=== PATIENT | female | born 1955 | race Caucasian/White ===

== ENCOUNTER → 2018-01-28 | Outpatient (CLI) | payer OTHER ==
[~2018-01-28] MED LIST: AMOX500 PO; Albuterol17 G1 INH; CALCAVITD PO; CEFP200 PO; CHOL10002 PO; CYCL10 PO; ERGO400 PO; IBUP800 PO; LEVSOD100 PO; LEVSOD25 PO; LISHYD1012 PO; LISHYD2025 PO; Multivitamin1 EAC1 PO; PREN-16 PO; PROC10 PO; VALA500 PO
[2018-01-28 14:19] LABS: BASOPHILS ABSOLUTE AUTO 0.05 K/mm3 (0.00-0.23); BASOPHILS PERCENT AUTO 1 % (0-2); EOSINOPHILS ABSOLUTE AUTO 0.07 K/mm3 (0.00-0.68); EOSINOPHILS PERCENT AUTO 1 % (0-6); Hematocrit 41.5 % (33.0-51.0); Hemoglobin 14.2 g/dL (11.5-16.0); IMMATURE GRAN ABSOLUTE AUTO 0.02 K/mm3 (0.00-0.10); IMMATURE GRAN PERCENT AUTO 0 % (0-1); LYMPHOCYTES PERCENT AUTO 28 % (21-46); MONOCYTES ABSOLUTE AUTO 0.43 K/mm3 (0.16-1.47); MONOCYTES PERCENT AUTO 5 % (4-13); Mean Corpuscular HGB 31.8 pg (26.0-34.0); Mean Corpuscular HGB Conc 34.2 g/dL (31.5-36.5); Mean Corpuscular Volume 93 fL (80-100); Mean Platelet Volume 10.4 fL (9.1-12.4); NEUTROPHILS ABSOLUTE AUTO 5.99 K/mm3 (1.96-9.15); NEUTROPHILS PERCENT AUTO 66 % (41-73); Platelet Count 283 K/mm3 (150-400); RDW Coefficient Variation 12.4 % (11.7-14.2); RDW Standard Deviation 42.5 fL (35.1-46.3); Red Blood Cell Count 4.46 M/mm3 (3.80-5.20); White Blood Cell Count 9.06 K/mm3 (4.00-11.30)
[2018-01-28 14:23] LABS: Bun/Creatinine Ratio 15.2 (12.0-20.0); Calcium, Blood 9.5 mg/dL (8.5-10.1); Creatinine, Blood 1.12 mg/dL (0.40-1.00); Potassium, Blood 3.8 mmol/L (3.5-5.5)
== END | disposition home or self-care (01) ==
LOC: LAB EV 14:13 → LAB SHORT 14:13
PROVIDERS: Family Medicine
DX: R10.9 Unspecified abdominal pain (principal)
CPT/HCPCS: 80048; 85025

== ENCOUNTER 2018-10-18 06:56 | Emergency (ER) | payer OTHER ==
[~2018-10-18] VITALS: Ht 162.6 cm; Wt 81.7 kg
[2018-10-18 08:03] LABS: BASOPHILS ABSOLUTE AUTO 0.05 K/mm3 (0.00-0.23); BASOPHILS PERCENT AUTO 0 % (0-2); EOSINOPHILS ABSOLUTE AUTO 0.02 K/mm3 (0.00-0.68); EOSINOPHILS PERCENT AUTO 0 % (0-6); Hematocrit 42.2 % (33.0-51.0); IMMATURE GRAN ABSOLUTE AUTO 0.03 K/mm3 (0.00-0.10); IMMATURE GRAN PERCENT AUTO 0 % (0-1); LYMPHOCYTES ABSOLUTE AUTO 2.33 K/mm3 (0.84-5.20); LYMPHOCYTES PERCENT AUTO 18 % (21-46); MONOCYTES ABSOLUTE AUTO 0.69 K/mm3 (0.16-1.47); MONOCYTES PERCENT AUTO 5 % (4-13); Mean Corpuscular HGB 31.3 pg (26.0-34.0); Mean Corpuscular HGB Conc 33.2 g/dL (31.5-36.5); Mean Corpuscular Volume 94 fL (80-100); Mean Platelet Volume 10.1 fL (9.1-12.4); NEUTROPHILS ABSOLUTE AUTO 9.76 K/mm3 (1.96-9.15); NEUTROPHILS PERCENT AUTO 76 % (41-73); Platelet Count 278 K/mm3 (150-400); RDW Coefficient Variation 13.2 % (11.7-14.2); RDW Standard Deviation 46.1 fL (35.1-46.3); Red Blood Cell Count 4.47 M/mm3 (3.80-5.20); White Blood Cell Count 12.88 K/mm3 (4.00-11.30)
[2018-10-18 08:26] LABS: Alanine Aminotransfer (ALT/SGP 35 U/L (12-78); Albumin, Blood 3.8 g/dL (3.4-5.0); Alk Phos 60 U/L (50-136); Anion Gap 6 mmol/L (6-16); Aspartate Aminotrans (AST/SGOT 40 U/L (12-37); Bilirubin, Total 0.5 mg/dL (0.1-1.0); Blood Urea Nitrogen 19 mg/dL (8-24); Bun/Creatinine Ratio 22.6 (12.0-20.0); CO2, Blood 25 mmol/L (21-32); Chloride, Blood 110 mmol/L (98-108); Creatinine, Blood 0.84 mg/dL (0.40-1.00); Glomerular Filtration Rate >60 (60-); Glucose, Blood 124 mg/dL (70-99); Potassium, Blood 3.7 mmol/L (3.5-5.5); Sodium, Blood 141 mmol/L (136-145); Total Protein, Blood 7.8 g/dL (6.4-8.2)
[2018-10-18] MEDS ORDERED: ONDA4ODT MM (09:25)
== END 2018-10-18 09:48 | disposition home or self-care (01) ==
LOC: ER 06:56
PROVIDERS: Emergency Medicine
DX: K52.9 Noninfective gastroenteritis and colitis, unspecified (principal); I10 Essential (primary) hypertension; E03.9 Hypothyroidism, unspecified; Z85.3 Personal history of malignant neoplasm of breast; Z88.8 Allergy status to other drugs, medicaments and biological substances; Z79.899 Other long term (current) drug therapy
CPT/HCPCS: 80053; 85025; 96361; 96374; 99284-25; J2405; J7030

== ENCOUNTER 2019-01-01 18:39 | Emergency (ER) | payer OTHER ==
[~2019-01-01] VITALS: Ht 162.6 cm; Wt 81.7 kg
[~2019-01-01 18:39] MED LIST changes: +ONDA4ODT MM
[2019-01-01] MEDS ORDERED: Percocet 5-3251 EACH PO (20:59)
== END 2019-01-01 21:08 | disposition home or self-care (01) ==
LOC: ER 18:39
DX: G89.29 Other chronic pain (principal); M54.5 Low back pain; C50.919 Malignant neoplasm of unspecified site of unspecified female breast; M53.3 Sacrococcygeal disorders, not elsewhere classified; I10 Essential (primary) hypertension; E03.9 Hypothyroidism, unspecified; Z88.8 Allergy status to other drugs, medicaments and biological substances; Z79.899 Other long term (current) drug therapy
CPT/HCPCS: 72220; 96372; 99283-25; A9270; J1170

== ENCOUNTER 2019-02-13 15:19 | Inpatient (IN) | payer OTHER ==
[~2019-02-13] VITALS: Ht 162.6 cm; Wt 77.1 kg
[~2019-02-13 15:19] MED LIST changes: +Percocet 5-3251 EACH PO
[2019-02-13 15:42] LABS: Hematocrit 32.7 % (33.0-51.0); Hemoglobin 10.4 g/dL (11.5-16.0); Mean Corpuscular HGB 30.7 pg (26.0-34.0); Mean Corpuscular HGB Conc 31.8 g/dL (31.5-36.5); Mean Corpuscular Volume 97 fL (80-100); Mean Platelet Volume 10.1 fL (9.1-12.4); NRBC ABSOLUTE 0.02 K/mm3 (0.00-0.02); NRBC Auto 0.1 /100 WBC (0.0-0.2); Platelet Count 303 K/mm3 (150-400); RDW Coefficient Variation 13.4 % (11.7-14.2); RDW Standard Deviation 47.8 fL (35.1-46.3); Red Blood Cell Count 3.39 M/mm3 (3.80-5.20); White Blood Cell Count 14.03 K/mm3 (4.00-11.30)
[2019-02-13 15:54] LABS: Albumin, Blood 2.6 g/dL (3.4-5.0); Albumin/Globulin Ratio 0.5 (0.8-1.8); Bilirubin, Total 0.7 mg/dL (0.1-1.0); Calcium, Blood 8.5 mg/dL (8.5-10.1); Creatinine, Blood 6.54 mg/dL (0.40-1.00); Globulin, Blood 4.9 g/dL (2.2-4.0); Potassium, Blood 5.1 mmol/L (3.5-5.5); Total Protein, Blood 7.5 g/dL (6.4-8.2)
[2019-02-13 16:02] LABS: BAND PERCENT MAN 7 % (0-8); BASOPHILS PERCENT MAN 0 % (0-2); EOSINOPHILS PERCENT MAN 0 % (0-6); LYMPHOCYTES ABSOLUTE MAN 2.38 K/mm3 (0.84-5.20); LYMPHOCYTES PERCENT MAN 17 % (21-46); METAMYELOCYTE ABSOLUTE MAN 0.42 K/mm3 (0.00-0.00); METAMYELOCYTE PERCENT MAN 3 % (0-0); MONOCYTES ABSOLUTE MAN 0.56 K/mm3 (0.16-1.47); MONOCYTES PERCENT MAN 4 % (4-13); MYELOCYTE ABSOLUTE MAN 0.28 K/mm3 (0.00-0.00); MYELOCYTE PERCENT MAN 2 % (0-0); NEUTROPHILS ABSOLUTE MAN 10.38 K/mm3 (1.96-9.15); SEG NEUTROPHILS PERCENT MAN 67 % (41-73); TOTAL CELLS COUNTED 100
[2019-02-13] MEDS ORDERED: ZESTORETIC 20-121 EA PO (16:31)
[2019-02-13] MEDS ORDERED: Fentanyl1 EAC4 TOP (16:32)
[2019-02-13] MEDS ORDERED: MORP15ER PO (16:33)
[2019-02-13] MEDS ORDERED: LETR2.5 PO (16:38)
--- NOTE | 2019-02-13 19:29 | NUR ---
PT ADMITTED TO FLOOR. PT BROUGHT TO FLOOR AT 1830. PT ORIENTED TO ROOM. FAMILY AT BEDSIDE. VITALS SIGNS EXPECTED. NS STARTED AT 150ML/HR. FIRST DOSE OF HEPARIN GIVEN. REPORT GIVEN TO AUSTIN TRONCOSO RN.
--- NOTE | 2019-02-13 20:55 | NUR ---
PT FAMILY STATED PT WAS DIAGNOSED WITH BRAIN LESION ON JANUARY 25 2019.
[2019-02-13 22:01] LABS: Bun/Creatinine Ratio 10.3 (12.0-20.0); Calcium, Blood 7.7 mg/dL (8.5-10.1); Creatinine, Blood 6.14 mg/dL (0.40-1.00); Potassium, Blood 4.9 mmol/L (3.5-5.5)
--- NOTE | 2019-02-14 04:15 | NUR ---
SHIFT SUMMARY PT REMAINS SLIGHTLY CONFUSED AND SLOW TO RESPOND. PT AND FAMILY REQUESTED CODE STATUS BE CHANGED TO FULL CODE STATUS. PT HAS NOT HAD ANY REPORTED URINE OUTPUT WILL BLADDER SCAN TO SEE IF RETAINING. PT HAS BEEN SLEEPING WELL T/O SHIFT. PT FAMILY STAYED THE NIGHT WITH PT. PT CURRENTLY SLEEPING AND BREATHING EASY. CALL LIGHT IN REACH.
--- NOTE | 2019-02-14 04:40 | NUR ---
*PT FOUND MORE LETHARGIC DURING LAB DRAW THIS AM* PT CBG CHECKED AND WAS BELOW NORMAL LIMITS. PT IS GETTING NECTAR THICK ORANGE JUICE NOW AND WILL REACESS.
[2019-02-14 06:01] LABS: Bun/Creatinine Ratio 10.2 (12.0-20.0); Calcium, Blood 7.6 mg/dL (8.5-10.1); Creatinine, Blood 6.18 mg/dL (0.40-1.00); Potassium, Blood 5.1 mmol/L (3.5-5.5)
--- NOTE | 2019-02-14 10:05 | NUR ---
Brief visit and introduction to pt and family at bedside. SO, requests another daughter be present and phoned her. She will arrive in 15-20 minutes and I will return. Pt states she is not hurting at this time. She appears to be sleeping but roused easily when I said her name and spoke to her. She drifts back to sleepy state if left undisturbed. Will return within next hour to continue conversation, determine goals of care and discuss advanced care planning.
--- NOTE | 2019-02-14 11:39 | NUR ---
DNR PT CHANGED TO DNR STATUS PER PT WISHES. DR. GONZALEZ GAVE ORDER. PURPLE WRIST BAND ON L WRIST. VERIFIED BY SULEMA SANTANA IN PALLITIVE.
[2019-02-14 11:52] LABS: Albumin/Globulin Ratio 0.4 (0.8-1.8); Bilirubin, Direct 0.3 mg/dL (0.0-0.3); Bilirubin, Indirect 0.2 mg/dL (0.1-0.7); Bilirubin, Total 0.5 mg/dL (0.1-1.0); Globulin, Blood 4.6 g/dL (2.2-4.0); Total Protein, Blood 6.6 g/dL (6.4-8.2); Uric Acid, Blood 14.3 mg/dL (2.6-6.0)
--- NOTE | 2019-02-14 12:00 | NUR ---
Returned to pt's room to meet with family at their request. Present are Les Mg, pt's long time SO, daughter ayan and Yudith bagley. Pt's son, Abhi is in the and after our lengthy family conference was summoned by his sister and is expected to arrive later today. Pt present but is not able to participate in the conversation, despite Yudith's attempts to orient her to the conversation. Pt is talking about loved ones who are no longer living, especially her dad, who she was very close to. Pt appears to be in pain with grimacing, clenching face and moaning when awake. If asked she will frequently say she is not hurting. She is in/out of wakefulness and anxiety appears to be growing. Her family is appropriately tearful and feel this change in her kidney function, mentation and weakness happened in a matter of 1-2 days. We reviewed her medical and cancer dx/treatment hx briefly. Family had expressed to RN that they do not feel she should remain a full code and wanted to discuss that with me also. Brittney tried to include pt in the conversation but she is clearly not processing information or thoughts well enough to answer and has a blank stare at [facility] for a very long period. Kandice Richard, identified as pt's chief medical surrogate decision maker. She has spoken with her brother, Abhi and all four family members request that pt be made a DNR. POLST form was completed with them today and left for Dr park. called with report of my visit and order obtained for DNR, which was entered by pt's RN. Pt has nephrology consult pending and labs pending to further assist in trying to improve her current kidney function. Family aware that this is the most pressing issue right now. They state pt would not want dialysis. Long time spent supporting family and answering their questions re: what ifs. Pt care options given to them. Pt is currently showing signs of fluid overload with edematous hands and LE bilaterally. She is dyspnic with O2 on per nc. SO identifies as a [employer]. I asked if they had a scallop shucker that would be of comfort to them but he had recently retired. Numerical [employer] Nesting Operator called in to support them. They report pt loves music and I discussed music therapy visit with them in the next day or so. They were receptive and appreciative. Anai was scheduled to restart palliative radiation oncology tx this week and Les states they will have to cancel for now. Family will reevaluate decisions regarding cancer treatment if her kidney and overall function improve and that could be considered. Family given our contact information and instructed that [facility] will visit daily for s/s management and support to pt/family, ongoing conversation re: advanced care planning and medical decision making. Total visit/intervention time - 2 hrs.
--- NOTE | 2019-02-14 13:08 | NUR ---
DR. SCHWARTZ NOTIFIED OF LAB RESULTS. DR. SCHWARTZ CALLED & NOTIFIED OF LAB RESULTS. INFORMED OF PT INABILITY TO VOID & BLADDER SCAN VOLUME OF 339. ORDERED TO PLACE PRITCHETT & TO START NS WITH 1 AMP BICARB AT 75 AN HOUR. WILL CONITNUE TO MONITOR.
--- NOTE | 2019-02-14 13:12 | NUR ---
PT INCREASE IN ANXIETY AFTER BEDBATH PT BECAME EXTREMELY ANXIOUS. PT STATED SHE WAS "SCARED" & THOUGHT WE WERE TRYING TO KILL HER. PT ATTEMPTED TO COMFORT PT. PT CONTINUED TO BE SCARED & YELLING IN ROOM. PT VERY PARANOID THAT STAFF IS TRYING TO HURT HER. WILDLIFE ECOLOGIST, HARPREET DAWKINS CALLED & GONZALEZ & NOTIFIED HIM OF EVENT. TO ORDER ATIVAN FOR PT. WILL CONTINUE TO MONITOR.
--- NOTE | 2019-02-14 13:58 | NUR ---
NAKUL IN ROOM. PT CONTINUES TO BE ANXIOUS & PARANOID TOWARDS STAFF CARE. PT WILL NOT ALLOW FOR ATIVAN TO BE GIVEN OR FOR PRITCHETT TO BE PLACED. BONIFACIO MOTA IN ROOM WITH PT. WILL ATTEMPT TO PLACE PRITCHETT & MEDICATE NEEDEDWHEN PT IS CALMED.
--- NOTE | 2019-02-14 15:09 | NUR ---
Called in to provide child welfare counselor and prayer to Anai and family. Anai was appeared to be halluncinating, yelling "No!" to unseen things. Family in turmoil, trying to talk her out of it. Asked to be alone with pt. Family left, door closed. Sat at bedside quietly for long while. Anai drifted in and out od lucidity. She was tired. When she began to say "No!" i responded with "no" in a calm, gentle ligia. This appeared to work. Met with spouse, Les, out side of room and offered child welfare counselor and prayer to good effect. Advised family to provide calm presence and taught them calming techniques. They are leaning towards "comfort meausres only." I will remain available.
--- NOTE | 2019-02-14 15:20 | NUR ---
PT REFUSED NS WITH SODIUM BICARB DR. SCHWARTZ ATTEMPTED TO EDUCATE PT ON THE BENEFITS OF NS WITH BICARB. PT REFUSED IV & STATED THAT SHE DOES NOT WANT A CATHETER EITHER. WILL CONTINUE TO MONITOR.
--- NOTE | 2019-02-14 16:50 | NUR ---
COMFORT CARE. PT TRANSITIONED TO COMFORT CARE. FAMILY MADE THE DECISION TO START COMFORT CARE AFTER DEBATING PROS & CONS. PT FAMILY DISCUSSED THESE OPTIONS WITH PALLITIVE CARE NURSE, ESTHER, NAKUL VALDOVINOS, & THIS RN. AFTER DISCUSSION, PT FAMILY DECIDED THAT COMFORT CARE IS THE BEST OPTION. PT & DAUGHTER STATED THAT THEY WOULD LIKE STAFF TO GIVE MEDICATIONS NEEDED FOR COMFORT EVEN IF PT IS REFUSING, IT PHYSICAL SIGNS OF PAIN OR ANXIETY ARE PRESENT. WILL CONTINUE TO MONITOR.
--- NOTE | 2019-02-14 18:11 | NUR ---
PT TRANSFERED TO 313/SHIFT SUMMARY PT TRANSFERED TO 313 AT 1730. AFTER BEING PARANOID & REFUSING CARE PT FELL ASLEEP & HAS REMAINED ASLEEP THROUGH TRANSFER. PT TRANSITIONED TO COMFORT CARE. NO MEDICATION NEEDS BEFORE TRANSFER. FAMILY NOTIFIED OF TRANSFER & MET PT IN NEW ROOM. REPORT GIVEN TO TOM MCCAIN RN. DENIES FURTHER QUESTIONS. PT STABLE & LAST SET OF VSS. NO OTHER CHANGES AT THIS TIME.
--- NOTE | 2019-02-15 07:18 | NUR ---
SHIFT SUMMARY PT ON CC. SLEEPING ON AND OFF. WOKE UP WHEN WE CHECKED AND CHANGED HER BUT GOT VERY AGITATED AND PARANOID AND FEARFUL WITH TURNING/CHANGING. FAMILY AT BEDSIDE T/O NIGHT. IV ATIVAN FOR ANXIETY AGITATION. SHE WAS ABLE TO SLEEP AFTER THAT AND WAS MORE CALM WHEN WE CHECKING AND CHANGE HER, NOT RESISTING CARES.
--- NOTE | 2019-02-15 11:39 | NUR ---
Comfort care visit with Anai, her daughter Kandice, and her best friend, Mary. Ospina was recently medicated for back pain with roxinal with good relief. They are telling stories, laughing, and enjoying each other's company. Kandice states "Today is a good day." Kandice is helping with her mom's care needs prn. Anai appears to be comfortable and well cared for by staff and her family at this time. PC will continue to follow.
--- NOTE | 2019-02-15 11:45 | NUR ---
ASSUMED CARE: PT RESTING IN BED AT THIS TIME. FAMILY AT BEDSIDE. NO ACUTE NEEDS NOTED AT PRESENT
--- NOTE | 2019-02-15 14:31 | NUR ---
Pal Spiritual Care note: Met with dtrKandice, at bedside this AM. She was alone with pt. Anai opens eyes to voice, smiles, and goes back to sleep. She appears comfortable and at peace. Provided encouragement, emotional affirmation and anticipatory bereavement student counselor to Kandice with good effect. I will continue to support this family as schedule permits.
--- NOTE | 2019-02-15 17:54 | NUR ---
SHIFT SUMMARY: PT REMAINS COMFORT CARE. MEDICATED X2 FOR PAIN SINCE ASSUMING CARE. FAMILY AT BEDSIDE. DENIES FURTHER NEEDS OR CONCERNS.
--- NOTE | 2019-02-16 06:22 | NUR ---
SHIFT SUMMARY: PT IS ALERT WITH MINIMAL REPSONSE. FAMILY IN THE ROOM OVERNIGHT. MEDICATED FOR PAIN ON ONE OCCASION. INCONTINENT ON SEVERAL OCCASIONS, CHANGED AND CLEANED NEEDED. TURNED Q4H PER FAMILY REQUEST. NO ACUTE CHANGES OR COMPLICATIONS THIS SHIFT. WILL REPORT TO DAY NURSE.
--- NOTE | 2019-02-16 17:56 | NUR ---
Comfort Care: Pt is alert, difficulty finding words. She nods and shakes her head appropriately to questions. She does have expressions that convey wishes also, at times. Pt's hands do have a tremor; family reports that this is a symptom that they have seen. Discussed pt's values. She agrees that she would rather be awake and alert rather than sedated with medication. SHe nods her head to this effect. She also screws up her face when asked if she would like any medication at all at this time. Kandice, pt's and 2 other visitors are present. Pt is a confidential patient, due to other visitors that "bring drama and chaos," per Kandice. They are requesting fentanyl be taken off of the profile of medications that may be given, due to nurse assessment of symptoms. Pt is very clear that she does not want to be medication, even if in severe pain. Spoke to nurse, Terry. SHe reports that family had requested pain medication earlier and pt clearly refused with a verbal "no" and a turn of her head. Called and spoke to ana lilia Ragland to d/c fentanyl. No other concerns from family at this time. Card given with palliative information. Kandice reports that she had very good interactions with palliative nurseGretchen earlier this week.
--- NOTE | 2019-02-16 18:16 | NUR ---
Discontinued non-comfort care medications. Pt unable to swallow safely.
--- NOTE | 2019-02-16 18:32 | NUR ---
SHIFT SUMMARY: PT HAS BEEN RESTING IN BED AWAKE AND ALERT TO SELF AND SITUATION AT TIMES. PAIN MEDS WERE GIVEN X 1. FAMILY HAS BEEN AT BEDSIDE ALL DAY. PT TURNED AND RE-POSITIONED EVERY 2 HOURS AND ASSISTED WITH TOIETING AND PERSONAL CARE. PT IS ABLE TO VERBALIZE HER NEEDS AT TIMES OR REPORT IF SHE IS OR IS NOT IN PAIN. PT CONTINUES TO NEED FREQUENT NURSE ROUNDING.
--- NOTE | 2019-02-16 18:36 | NUR ---
Pal Spiritual Care note: Anai continues to be well loved and supported by her family. Spouse and dtrs at bedside. Anai appears peaceful and somewhat lucid. She responds in one or two words. She denies pain/fear and smiles easily. She is very sleepy. Provided family with information on dying process as they expressed a few concerns. We prayed together for God's [place] and peace for Anai. Family expresses enormous gratitude for compassionate care by nursing. I will remain available.
--- NOTE | 2019-02-17 07:22 | NUR ---
comfort care, multiple attempts at providing care were very politely declined by family pt indicated agreement to refusal of care/medication, provided care as allowed, 2L via nc, saline locked, alert to self and family, bsr shared with returning day staff
--- NOTE | 2019-02-17 15:15 | NUR ---
Pal Spiritual Care note: Anai appears peaceful and well cared-for by nursing. She did not awaken while I as present. Her dtr, Kandice and pt's friend, Vandana, were at bedside. They report gratitude that Anai is peaceful. Provided prayer and encouragement. Refilled comfort cart. I will remain available.
--- NOTE | 2019-02-17 17:47 | NUR ---
SHIFT SUMMARY: PT HAS BEEN ALERT X 1 AT BASELINE THIS SHIFT AND HAS MORE TROUBLE VERBALIZES NEEDS THAN YESTERDAY. PAIN HAS BEEN MANAGED WITH CURRENT PAIN MED ORDERS. ORAL CARE HAS BEEN DONE THROUGHOUT SHIFT. FAMILY AND FRIENDS HAVE BEEN AT BEDSIDE ALL SHIFT. DAUGHTER REQUESTED ORAL SUCTION AND DR GONZALEZ WAS NOTIFIED AND GAVE VERBAL ORDERS. PT IS NOW RESTING IN BED WITH DAUGHTER AT BEDSIDE.
--- NOTE | 2019-02-17 17:51 | NUR ---
Pal Spiritual Care note: Asked by dtr to speak to pt's "friend" Vandana regarding "hanging out all day in pt's room." Family would like "Family only" from now. Nehemias informed Vandana of family's request. Family requested I provide prayer and support to Anai. I was honored and happy to do so. Anai's brow was furroughed and dtr thought pt was in pain. When pt asked about pain, she opened eyes briefly, but did not respond. Pain meds administered and releif was noticable. Anai awakend, smiled and engaged. She is very weak and did not stay awake long. I will continue to provide support and prayer in coming days.
--- NOTE | 2019-02-18 06:37 | NUR ---
family declined to have pt moved stateing that it caused her more pain then it prevented, discussed again the possible reslutls of no movement, family graciously declined not wanting to hurt their mother, provided all the care that was allowed, oral or medical, 2L via nc, saline locked, family at bed side will continue to monitor and treat until share bsr with in coming day staff, responds to voice, able to indicate agreement or disagreement
--- NOTE | 2019-02-18 09:12 | NUR ---
AM CARE THIS RN MEDICATED FOR PAIN AND THEN CHANGED PT'S ATTENDS AND REPOSITIONED PT WITH MANAGER ACQUISITION ASSISTANCE. NO ACUTE DISTRESS AT THIS TIME. PT APPEARS COMFORTABLE AFTER REPOSITIONED AND NOT MOVING. ORAL CARE GIVEN BEFORE PAIN MEDICATION ADMINISTERED. WILL CONTINUE TO MONITOR FOR COMFORT.
--- NOTE | 2019-02-18 11:45 | NUR ---
Met with Anai's dtr Kandice, son Abhi, and Les's dtr at the bedside. They have questions re: hospice as the hospitalist had talked to them about taking Anai home with hospice services. Discussed the hospice program and what services are available. Family states they will be able to provide 24 hour care. Answered questions they had re: care with hospice at home. Provided them with comfort care booklet and discussed EOL symptoms that they may see. They were grateful for the information although they state that dealing with Miras disease process and decline has been overwhelming to them. Will allow them some time to speak with clarissa Saldana's S.O. as pt would be going home to his house. They will discuss hospice agencies and work on a plan for getting ready to take her home. Anai was medicated a few minutes prior to my visit. She opens her eyes on occasion, however she spoke very few words. No distress noted. Discussed nutrition and how needs change at EOL. They requested a milkshake for Anai. Made a chocolate ensure milkshake for her and encouraged the family to allow her to drink it when she is awake and alert if she wants to for comfort. Discussed not forcing Anai to eat if she doesn't feel that she wants to. PC will continue to follow for symptom management and planning for discharge home with hospice.
--- NOTE | 2019-02-18 18:29 | NUR ---
SHIFT SUMMARY PT HAS BEEN RESTING A LOT OF THE SHIFT. THIS RN MEDICATED FOR PAIN SEVERAL TIMES PER EMAR. FAMILY AT BEDSIDE. PT RECEIVED A BED BATH AND THIS RN PLACED A SACRAL MEPILEX TO COCCYX FOR BREAKDOWN PREVENTION. Q2 HOUR TURNING UNLESS FAMILY OR PT DECLINES. PLANS FOR DISCHARGE ON HOSPICE TO HOME FRIDAY. WILL CONTINUE TO MONITOR FOR COMFORT AND REPORT TO ONCOMING RN.
--- NOTE | 2019-02-19 07:38 | NUR ---
medicated for pain based on agitation and facial expression, pt able to refuse medication and responds to verbal as well as pain, family in room, saline locked, on 2L via nc, bsr given to day nurse
[2019-02-19] MEDS ORDERED: MORP20L SL (10:50)
[2019-02-19] MEDS ORDERED: ATROPINE 0.01%-10 ML SL (10:50)
[2019-02-19] MEDS ORDERED: Transderm-Scop1 EACH TD (10:51)
[2019-02-19] MEDS ORDERED: LORA1 PO (10:51)
--- NOTE | 2019-02-19 12:18 | NUR ---
PATIENT DISCHARGED HOME WITH HOSPICE AT 12:16. FAMILY AT THE BEDSIDE. PATIENT MEDICATION FOR PAIN PRIOR TO DISCHARGE. PRESCRIPTIONS AND PATIENT TEACHING GIVEN TO THE PATIENTS DAUGHTER.
== END 2019-02-19 12:18 | disposition hospice, home (50) | DRG 682 ==
LOC: ER 15:19 → MEDS 16:57 → ENPENDDIS 02-19 09:00 → MEDS 02-19 12:18
PROVIDERS: Emergency Medicine; Internal Medicine Nephrology; ADMIT Internal Medicine
DX: N17.9 Acute kidney failure, unspecified (principal); G92 Toxic encephalopathy; E87.1 Hypo-osmolality and hyponatremia; I10 Essential (primary) hypertension; E03.9 Hypothyroidism, unspecified; D64.9 Anemia, unspecified; C50.919 Malignant neoplasm of unspecified site of unspecified female breast; Z51.5 Encounter for palliative care; E86.9 Volume depletion, unspecified; E87.6 Hypokalemia; E88.09 Other disorders of plasma-protein metabolism, not elsewhere classified; D89.2 Hypergammaglobulinemia, unspecified; N13.9 Obstructive and reflux uropathy, unspecified; Z79.899 Other long term (current) drug therapy; Z88.8 Allergy status to other drugs, medicaments and biological substances; Z87.891 Personal history of nicotine dependence; G89.3 Neoplasm related pain (acute) (chronic)
CPT/HCPCS: 36415; 76770; 80048; 80053; 80076; 82150; 82550; 82947; 83690; 84550; 85025; 96361; 96374; 99285-25; J1644; J2060; J3010; J7030; Q0167